=== PATIENT | female | born 1975 | race African-American/Black ===

== ENCOUNTER 2024-02-08 09:57 | Emergency (ER) | payer OTHER, SELFPAY ==
--- NOTE | ~2024-02-08 | XR_ITS ---
XR chest 2V Ordering provider: Cecil Eli MD History: 48 years Female with . chest pain SINCE YESTERDAY, HX ANXIETY, CURRENT SMOKER . Comparison: None. FINDINGS: MEDIASTINUM: The cardiac silhouette is not enlarged. LUNGS: No infiltrates, effusions or pneumothorax. OTHER: No free air under the diaphragm. IMPRESSION: No acute cardiopulmonary pathology. Reviewed, dictated and finalized at location A. R TRANSFORMER INSPECTOR
--- NOTE | 2024-02-08 10:07 | ECG_ITS ---
Test Date: 2024-02-08 10:14:11 Measurements Intervals Matthews Rate: 87 P: 70 OH: 152 QRS: 63 QRSD: 77 T: 60 QT: 331 QTc: 400 Interpretive Statements SINUS RHYTHM POSSIBLE LEFT ATRIAL ENLARGEMENT BASELINE ARTIFACT- I, II, III, AVR, AVL, AVF BORDERLINE ECG No previous ECG available for comparison Electronically Signed On 02-08-2024 15:54:49 C SOFTWARE DEVELOPER by Nino Keyes D.O.
[2024-02-08 10:09] VITALS: BP 120/92; PULSE 88; RESP 16; TEMP 36.2; O2SAT 97
[2024-02-08 10:42] LABS: Basophils Percent Auto 0.4 % (0.2-1.2); Eosinophils Absolute Auto 0.1 K/mm3 (0-0.3); Eosinophils Percent Auto 1.2 % (0-4.4); Hematocrit 40.8 % (37.0-47.0); Hemoglobin 13.8 g/dL (12.0-15.0); Immature Granulocyte Absolute 0.02 K/mm3 (0.00-0.031); Immature Granulocyte Percent A 0.3 % (0-0.5); Lymphocytes Absolute Auto 3.33 K/mm3 (0.9-3.2); Lymphocytes Percent Auto 46.1 % (18.3-44.2); Mean Corpuscular HGB Conc 33.8 g/dl (32-36); Mean Corpuscular Hemoglobin 32.3 pg (26-34); Mean Corpuscular Volume 95.6 fl (80-100); Mean Platelet Volume 10.2 fl (7.4-10.4); Monocytes Absolute Auto 0.4 K/mm3 (0.1-0.6); Monocytes Percent Auto 5.9 % (2.6-8.5); Neutrophils Absolute Auto 3.3 K/mm3 (1.3-6.7); Neutrophils Percent Auto 46.1 % (45.5-73.1); Platelet Count Result 270 k/mm3 (150-375); Red Blood Count 4.27 M/mm3 (4.2-5.4); Red Cell Distribution Width 13.7 % (11.5-14.5); White Blood Count 7.2 K/mm3 (4.5-10.0)
[2024-02-08 10:50] LABS: Alanine Aminotransferase 23 U/L (6-35); Albumin Level 4.5 g/dL (3.5-5.1); Alkaline Phosphatase 99 U/L (38-126); Anion Gap 6 mmol/L (4-12); Aspartate Amino Transferase 21 U/L (14-36); Bilirubin,Total 0.4 mg/dL (0.2-1.3); Blood Urea Nitrogen 11 mg/dL (7-17); Calcium 9.2 mg/dL (8.4-10.2); Carbon Dioxide 25 mmol/L (22-30); Chloride 108 mmol/L (98-107); Estimated CRCL calculation 95 ml/min; Estimated Glomerular Filt Rate > 60; Glucose 119 mg/dL (65-110); Lipase 158 U/L (23-300); Potassium 4.4 mmol/L (3.4-5.0); Sodium 139 mmol/L (137-145)
[2024-02-08 10:53] LABS: INR 0.9; Prothrombin Time 12.5 Seconds (11.1-14.7)
[2024-02-08 10:54] LABS: Partial Thromboplastin Time 26.7 Seconds (22.3-36.8)
[2024-02-08 11:56] VITALS: BP 124/85; PULSE 75; RESP 14; TEMP 36.4; O2SAT 97
[2024-02-08 11:57] VITALS: O2SAT 100
[2024-02-08] MEDS: ASPIRIN 81 MG CHEWABLE TABLET 324 MG PO (12:22)
--- NOTE | 2024-02-08 12:25 | ED_ITS ---
HPI - Chest Pain General Chief Complaint: Chest Pain Stated Complaint: chest pain x 3 weeks Time Seen by Provider: 02/08/24 12:10 Source: patient Mode of arrival: ambulatory Limitations: no limitations History of Present Illness HPI narrative: 48 years old female with history of anxiety and depression came to the ED from work by private car complaining of central chest pressure type pain started last night, got worse at work today. Patient denies radiation of pain, increased with anxiety, stress and movement, patient went back to work today for the 1st time after 3 weeks of work because of her daughter got murdered 3 weeks ago. Patient denies radiation of pain or shortness of breath. Related Data Allergies Allergy/AdvReac Type Severity Reaction Status Date / Time No Known Allergies Allergy Verified 02/08/24 12:04 Review of Systems Review of Systems: All systems reviewed & are unremarkable except as noted in HPI and below Exam Narrative: General appearance: Well-developed, well-nourished, patient is crying and looks severely depressed Skin: Normal color Head: Normocephalic, nontraumatic Eyes: Clear conjunctiva ENT: Oropharynx normal, ears normal, nose normal Neck: Supple, nontender Chest and respiratory: Airway patent, no respiratory distress, no accessory muscle use severe tenderness across the chest with mild palpation, no bruises, no swelling or rash Heart: Regular rate/rhythm Abdomen: Soft, nontender, no organomegaly, quiet bowel sounds Musculoskeletal: Normal range of motion, nontender back Neurologic: Alert and oriented ?3, 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 as tested, no gross motor deficit Course Vital Signs Vital signs: Vital Signs Temperature 36.2 C L 02/08/24 10:09 Pulse Rate 88 02/08/24 10:09 Respiratory Rate 16 02/08/24 10:09 Blood Pressure 120/92 H 02/08/24 10:09 Pulse Oximetry 97 02/08/24 10:09 Temperature 36.4 C 02/08/24 11:56 Pulse Rate 75 02/08/24 11:56 Respiratory Rate 14 02/08/24 11:56 Blood Pressure 124/85 02/08/24 11:56 Pulse Oximetry 100 02/08/24 11:57 Oxygen Delivery Room Air 02/08/24 11:57 MDM - Chest Pain MDM Narrative Medical decision making narrative: Patient came to the ED with central chest pressure type pain Vital signs stable Physical examination showing crying patient, looks depressed, with severe tenderness across the chest with light palpation Differential diagnosis includes chest wall pain, stress inducing chest pain, co ronary artery disease is less likely, pulmonary embolism is less likely. Blood workup today include CBC, CMP, troponin showed no significant abnormality Chest x-ray showed no acute abnormality EKG showed normal sinus rhythm at 87 beats per minute, left atrial enlargement, borderline EKG Heart score is 2. Discharged home, Diagnosis: Anxiety, chest wall pain Differential Diagnosis Differential diagnosis: Likely other (As above) Medical Records Data Attestation: I reviewed the patient's medical records. Lab Data Attestation: I reviewed the patient's lab results. 02/08/24 10:35 02/08/24 10:35 Labs: Lab Results 02/08/24 Range/Units 10:35 WBC 7.2 (4.5-10.0) K/mm3 RBC 4.27 (4.2-5.4) M/mm3 Hgb 13.8 (12.0-15.0) g/dL Hct 40.8 (37.0-47.0) % MCV 95.6 (80-100) fl MCH 32.3 (26-34) pg MCHC 33.8 (32-36) g/dl RDW 13.7 (11.5-14.5) % Plt Count 270 (150-375) k/mm3 MPV 10.2 (7.4-10.4) fl Immature Gran % (Auto) 0.3 (0-0.5) % Neut % (Auto) 46.1 (45.5-73.1) % Lymph % (Auto) 46.1 H (18.3-44.2) % [place] % (Auto) 5.9 (2.6-8.5) % Eos % (Auto) 1.2 (0-4.4) % Baso % (Auto) 0.4 (0.2-1.2) % Lymph # (Auto) 3.33 H (0.9-3.2) K/mm3 [place] # (Auto) 0.4 (0.1-0.6) K/mm3 Eos # (Auto) 0.1 (0-0.3) K/mm3 Baso # (Auto) 0.0 (0.0-0.1) K/mm3 Abs Immat Gran (auto) 0.02 (0.00-0.031) K/mm3 Absolute Neuts (auto) 3.3 (1.3-6.7) K/mm3 Absolute Nucleated RBC 0.000 (0.0-0.012) K/mm3 Nucleated RBC % 0.0 (0.0-0.2) % PT 12.5 (11.1-14.7) Seconds INR 0.9 APTT 26.7 (22.3-36.8) Seconds Sodium 139 (137-145) mmol/L Potassium 4.4 (3.4-5.0) mmol/L Chloride 108 H (98-107) mmol/L Carbon Dioxide 25 (22-30) mmol/L Anion Gap 6 (4-12) mmol/L BUN 11 (7-17) mg/dL Creatinine 0.60 L (0.7-1.0) mg/dL Estim Creat Clear Calc 95 ml/min Estimated GFR > 60 (59 - ) Glucose 119 H (65-110) mg/dL Calcium 9.2 (8.4-10.2) mg/dL Total Bilirubin 0.4 (0.2-1.3) mg/dL AST 21 (14-36) U/L ALT 23 (6-35) U/L Alkaline Phosphatase 99 (38-126) U/L Troponin I 0.020 (0.000-0.034) ng/mL Total Protein 7.0 (6.3-8.2) g/dL Albumin 4.5 (3.5-5.1) g/dL Lipase 158 (23-300) U/L Imaging Data Radiologist's impression: Impressions Chest X-Ray 02/08/24 11:44 IMPRESSION: No acute cardiopulmonary pathology. ECG Data EKG #1: Attestation: I personally reviewed and interpreted this ECG as follows: ECG completion date: 02/08/24 Interpretation: Normal sinus rhythm, left atrial enlargement, abnormal EKG Critical Care Time Critical Care Time Critical Care Time: No Discharge Plan Discharge Clinical Impression: Atypical chest pain Patient Disposition: Home, Self-Care Condition: Improved Instructions: Chest Pain (ED), Depression in Older Adults (ED) Additional Instructions: Return if symptoms are worsening , call your family physician for appointment, take Tylenol as as needed for aches and pain, continue home medications. Follow-up/Referrals: PHYSICIAN NOT ON STAFF,NONSTAFF [Primary Care Provider] - Stand Alone Forms: Work/School Release IP Quality HEART score for chest pain patients History: slightly suspicious ECG: normal Age: > 45 and < 65 years Risk factors: 1 or 2 risk factors Troponin: < or = to 1x normal limit Heart score: 2
[2024-02-08 12:51] VITALS: BP 140/84; PULSE 71; RESP 16; O2SAT 100
[2024-02-08] MEDS: KETOROLAC 30 MG/ML VIAL (*BKC) IV PUSH (13:46)
[2024-02-08] MEDS: LORazepam INJ (*CRX) 2 MG/ML VIAL 1 MG IV PUSH (13:47)
[2024-02-08 13:59] VITALS: BP 134/88; PULSE 70; RESP 13; TEMP 36.8; O2SAT 100
== END 2024-02-08 14:04 | disposition home or self-care (01) ==
PROVIDERS: Emergency Medicine; Emergency Provider Emergency Medicine
DX: R07.89 Other chest pain (principal); F41.9 Anxiety disorder, unspecified; F32.A Depression, unspecified; R94.31 Abnormal electrocardiogram [ECG] [EKG]
CPT/HCPCS: 36415; 71046; 80053; 83690; 84484; 85025; 85610; 85730; 93005; 96374; 96375; 99284; A9270; J1885; J2060

== ENCOUNTER 2024-06-21 14:15 | Emergency (ER) | payer OTHER, SELFPAY ==
--- NOTE | ~2024-06-21 | CT_ITS ---
CT lumbar spine wo con Ordering provider: Becky Lugo MD History: 48 years Female with . b/l leg weakness . Comparison: None. Technique: CT lumbar spine without contrast. Automated exposure control and iterative reconstruction technique were employed. The dose-length product was 634.27 mGy-cm. FINDINGS: VERTEBRAE: Normal height and alignment. No subluxation or visible acute fracture. DISC SPACES: Well maintained. Facet joint disease seen at the level of L3-L4, L4-L5 and L5 is 1 bilaterally. T12-L1: No stenosis. L1-L2: No stenosis. L2-L3: No stenosis. L3-L4: No stenosis. L4-L5: No stenosis. Diffuse disc bulge with narrowing of the right foramen with right nerve root com pression. Narrowing of the left foramen is also seen. L5-S1: No stenosis. Diffuse disc bulge with slight narrowing of the foramina. PARASPINOUS SOFT TISSUES: Mild atheromatous disease of the abdominal aorta. Sclerotic changes seen in both iliac bone suggestive of sacroiliitis. IMPRESSION: No acute osseous abnormality. Diffuse disc bulge with bilateral narrowing of the foramina at the level of L4-L5. Nerve root diane kieran seen in the right side. Clinical correlation advised. MRI is better for evaluation. Reviewed, dictated and finalized at location A. IMPRESSION: No acute osseous abnormality. Diffuse disc bulge with bilateral narrowing of the foramina at the level of L4- L5. Nerve root compression seen in the right side. Clinical correlation advised . MRI is better for evaluation.
[2024-06-21 14:19] VITALS: BP 143/87; PULSE 88; RESP 16; TEMP 36.6; O2SAT 100
--- NOTE | 2024-06-21 15:34 | PC.NURSE ---
1520---Patient notified staff that she was going out to smoke
[2024-06-21 15:45] VITALS: RESP 16; O2SAT 100
--- OUTSIDE RECORDS SUMMARY | 2024-06-21 16:26 | XMS_ITS | Clinical Summary ---
Author Organization [facility] [employer] Address [address] [place] [address] Care Team Providers Care Head Of Ethics And Compliance Name Role Phone Unavailable Primary Care Provider Unavailabl e Source Comments [facility],non-owned Affiliates and Associated Physician Practices is amultiple site organization consisting of ambulatory clinics and hospital sitesin [place], [place], [place] and [place]. This disclosure is being madepursuant to the Care Everywhere program and may not contain all information available regarding this patient. Last updated 17.[facility] Allergies Active Allergy Reactions Criticality Noted Date Comments Penicillins Rash Medium 06/21/2023 Medications * Be aware that medications may not be up to date on this document. Alwaysverify current medications with the patient. Medication Sig Dispensed Refills Start Date End Date Status clonazePAM (KlonoPIN) 0.5 MG tabletIndications:A nxiety Take 1 (one) tablet by mouth at bedtime Reasons: Feeling Anxious Active omeprazole EC (PriLOSEC OTC) 20 MG tabletIndications:H eartburn Take 1 (one) tablet by mouth as needed for Heartburn Reasons: Heartburn Active ergocalciferol (Drisdol) 1.25 MG (08404 UT) capsule Take 1 (one) capsule by mouth every 7 days 13 capsule 3 07/29/2023 Active Active Problems Problem Noted Date Diagnosed Date MARTIR (obstructive sleep apnea) 11/11/2023 Overview (11/11/2023): HOME SLEEP APNEA TEST INTERPRETATION (07/27/2023) DIAGNOSTIC STUDY During this diagnostic study, the patient was monitored for 384.5 minutes. The patient's overall respiratory event index (KEYSAH) was increased at 12.8 per hour. The supine KEYSHA was 22.4 per hour while the non-supine KEYSHA was 12.1 per hour. The minimum oxygen saturation was decreased at 84%. The time spent with oxygen saturation less than 90% was 4 min. 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 Lactose intolerance 06/21/2023 SOB (shortness of breath) on exertion 06/21/2023 Gastroesophageal reflux disease 06/21/2023 Orthopnea 06/21/2023 PND (paroxysmal nocturnal dyspnea) 06/21/2023 Wheezing 06/21/2023 Chronic cough 06/21/2023 Glaucoma of left eye 06/21/2023 Toothache 06/21/2023 Chronic pain of both knees 06/21/2023 Nocturnal leg cramps 06/21/2023 Numbness and tingling in right hand 06/21/2023 Migraine without status migrainosus, not intract able 06/21/2023 Sleep related headaches 06/21/2023 PTSD (post-traumatic stress disorder) 06/21/2023 Depression 06/21/2023 Bipolar affective disorder, current episode mixe d 06/21/2023 Generalized anxiety disorder with panic attacks 06/21/2023 Elevated BP without diagnosis of hypertension Family History Medical History Relation Name Comments Anxiety Disorder Brother Dementia Brother head injury Hypertension Brother Sleep Disorder - Sleep apnea Brother pap CAD (Coronary Artery Disease) Father 67 CVA Father 67 Hypertension Father 67 Thyroid Disease Father 67 Anxiety Disorder Mother 53 CVA Mother 53 Depression Mother 53 Diabetes; unknown type Mother 53 Hypertension Mother 53 Lupus Mother 53 Sleep Disorder - Sleep apnea Mother 53 no pap, RLS, insomnia Thyroid Disease Mother 53 Relation Name Status Comments Brother Alive Father 67 Mother 53 Social History Tobacco Use Types Packs/Day Years Used Date Smoking Tobacco: Every Day Cigarettes 1 25.3 Started: 1999 Smokeless Tobacco: Never Tobacco Cessation:Ready to Q uit: No; Counseling Given: No Alcohol Use Standard Drinks/Week Comments Yes 5 (1 standard drink = 0.6 oz pur e alcohol) weekends 5-6 Education Answer Date Recorded What is the highest level of school you have completed or the highest degree you have received? Associate degree: occupational, technical, or vocational program 06/21/2023 Sex and Gender Information Value Date Recorded Sex Assigned at Not on file Gender Identity Not on file Sexual Orientation Not on file Last Filed Vital Signs Vital Sign Reading Time Taken Comments Blood Pressure 134/85 06/21/2023 8:29 AM CDT Pulse 97 06/21/2023 8:29 AM CDT Temperature - - Respiratory Rate - - Oxygen Saturation - - Inhaled Oxygen Concentration - - Weight 85.7 kg (189 lb) 06/21/2023 8:29 AM CDT Height 157.5 cm (5' 2 ) 06/21/2023 8:29 AM CDT Body Mass Index 34.57 06/21/2023 8:29 AM CDT Plan of Treatment Health Maintenance Due Date Last Done Comments COLOGUARD (AGES 45-75) - COL ON CA SCREENING 1973 COLON MONITORING 1973 COLONOSCOPY - COLON CA SCREENING 1973 CT COLONOGRAPHY - COLON CA SCREENING 1973 Colorectal Cancer Screening 1973 FIT - COLON CA SCREENING 1973 FLEX SIG - COLON CA SCREENING 1973 LIPID TESTING 1973 MAMMOGRAM 1973 PAP SMEAR 1973 HIV SCREENING 1988 HEPATITIS C SCREENING 07/21/1991 DTAP/TDAP/TD VACCINES (1 - Tdap) 1992 HEPATITIS B VACCINE (1 of 3 - 19+ 3-dose series) 1992 PNEUMOCOCCAL VACCINE 50+ (1 of 2 - PCV) 1992 PNEUMOCOCCAL VACCINE (1 of 2 - PCV) 1992 LUNG CANCER SCREENING 07/26/2023 ZOSTER VACCINE (1 of 2) 07/26/2023 COVID-19 VACCINE (1 - 2023-2 5 season) 2023 INFLUENZA VACCINE (Season Ended) 2024 SCREENING FOR DIABETES 06/26/2026 06/27/2023 HIB VACCINE Aged Out No longer eligi ble based on patient's age to complete this topic HPV VACCINE Aged Out No longer eligi ble based on patient's age to complete this topic MENINGOCOCCAL (Group B) VACC INE SHARED DECISION-MAKING Aged Out No longer eligibl e based on patient's age to complete this topic MENINGOCOCCAL GROUPS A/C/Y/W VACCINE Aged Out No longer eligible b ased on patient's age to complete this topic Procedures Procedure Name Priority Date/Time Associated Diagnosis Comments COMPREHENSIVE METABOLIC PANEL Routine 06/27/2023 9:36 AM CDT Loud snoring Excessive daytime sleepiness Chronic fatigue Obesity (BMI 30-39.9) SOB (shortness of breath) on exertion Elevated BP without diagnosis of hypertension from Last 3 Months or Most Recently Relevant to Health Maintenance Results * (ABNORMAL) COMPREHENSIVE METABOLIC PANEL (06/27/2023 9:36 AM CDT) Glucose 121(H) 65 - 99 mg/dL [facility] Comment: Fasting reference interval For someone without known diabetes, a glucose value between 100 and 125 mg/dL is consistent with prediabetes and should be confirmed with a follow-up test. BUN 11 7 - 25 mg/dL [facility] Creatinine 0.77 0.50 - 0.99 mg/dL [facility] eGFR by Cystatin C 95 > OR = 60 mL/min/1. 73m2 [facility] BUN/Creatinine Ratio SEE NOTE: 6 - 22 (calc) [facility] Comment: Not Reported: BUN and Creatinine are within reference range. Sodium 138 135 - 146 mmol/L [facility] Potassium 4.4 3.5 - 5.3 mmol/L [facility] Chloride 104 98 - 110 mmol/L [facility] CO2 24 20 - 32 mmol/L [facility] Calcium 9.5 8.6 - 10.2 mg/dL [facility] Protein Total 7.1 6.1 - 8.1 g/dL [facility] Albumin 4.4 3.6 - 5.1 g/dL [facility] Globulin Total 2.7 1.9 - 3.7 g/dL (calc) [facility] Albumin/Globulin Ratio 1.6 1.0 - 2.5 (calc) [facility] Bilirubin Total 0.5 0.2 - 1.2 mg/dL [facility] Alkaline Phosphatase 91 31 - 125 U/L [facility] AST 13 10 - 35 U/L [facility] ALT 20 6 - 29 U/L [facility] Comment: Test Performed at: [facility] [address] [place] [address] KIRAN BHAKTA MD Blood BLOOD SPECIMEN / Unknown 06/27/2023 9:36 AM CDT 06/27/2023 9:36 AM CDT Alla Armstrong [facility] EMISTRY ORDERABLES Performing Organization Address City/State/[facility] Co de Phone Number [employer] [address] [place] [address] from Last 3 Months or Most Recently Relevant to Health Maintenance Insurance Payer Benefit Plan / Group Subscriber ID Effective Dates Phone Address Type [facility] CHOICE/SELECT/ CHOICE PLUS/ALL PAYORS [id number] [address] [address] [place] [address] HMO
[2024-06-21] MEDS: HYDROcodone/acetaminophen (*CRX) 5-325 MG TABLET 1 TAB PO (16:30)
[2024-06-21 16:32] LABS: Basophils Percent Auto 0.3 % (0.2-1.2); Eosinophils Absolute Auto 0.2 K/mm3 (0-0.3); Eosinophils Percent Auto 2.1 % (0-4.4); Hematocrit 40.7 % (37.0-47.0); Hemoglobin 13.2 g/dL (12.0-15.0); Immature Granulocyte Absolute 0.02 K/mm3 (0.00-0.031); Immature Granulocyte Percent A 0.3 % (0-0.5); Lymphocytes Absolute Auto 3.48 K/mm3 (0.9-3.2); Lymphocytes Percent Auto 48.9 % (18.3-44.2); Mean Corpuscular HGB Conc 32.4 g/dl (32-36); Mean Corpuscular Hemoglobin 31.5 pg (26-34); Mean Corpuscular Volume 97.1 fl (80-100); Mean Platelet Volume 10.1 fl (7.4-10.4); Monocytes Absolute Auto 0.4 K/mm3 (0.1-0.6); Neutrophils Percent Auto 42.4 % (45.5-73.1); Platelet Count Result 335 k/mm3 (150-375); Red Blood Count 4.19 M/mm3 (4.2-5.4); Red Cell Distribution Width 13.7 % (11.5-14.5); White Blood Count 7.1 K/mm3 (4.5-10.0)
[2024-06-21 16:34] LABS: Add Urine Microscopic? NO; Appearance Urine Clear (Clear); Bilirubin Urine Negative (Negative); Blood Urine Negative (Negative); Color Urine Yellow (Yellow); Glucose Urine UA Negative (Negative); Ketones Urine Negative (Negative); Leukocyte Esterase Ur Negative LEU/UL (Negative); Nitrate Urine Negative (Negative); Protein Urine Negative (Negative); Specific Grav Ur 1.011 (1.001-1.035); Urobilinogen Urine 0.2 mg/dL (<2.0); pH Urine 6.5 (5.0-9.0)
[2024-06-21 16:44] LABS: Alanine Aminotransferase 23 U/L (6-35); Albumin Level 4.4 g/dL (3.5-5.1); Alkaline Phosphatase 95 U/L (38-126); Anion Gap 7 mmol/L (4-12); Aspartate Amino Transferase 21 U/L (14-36); Bilirubin,Total 0.5 mg/dL (0.2-1.3); Blood Urea Nitrogen 9 mg/dL (7-17); Calcium 9.2 mg/dL (8.4-10.2); Carbon Dioxide 29 mmol/L (22-30); Chloride 102 mmol/L (98-107); Creatine Kinase 231 U/L (30-135); Estimated CRCL calculation 71 ml/min; Estimated Glomerular Filt Rate > 60; Glucose 97 mg/dL (65-110); Magnesium 2.1 mg/dL (1.6-2.3); Potassium 4.2 mmol/L (3.4-5.0); Sodium 138 mmol/L (137-145)
--- NOTE | 2024-06-21 16:51 | ED.GENADULT ---
HPI - General Adult General Chief complaint: Unspecified Stated complaint: leg cramps, sudden urine incontinence Time Seen by Provider: 06/21/24 15:46 Source: patient Mode of arrival: ambulatory History of Present Illness HPI narrative: Patient presents with report of bilateral leg pain and cramps. Pain started at her distal feet/ankles and has risen to her thighs. Had a cold 2-3 weeks ago, no GI symptoms at the time but she does feel her acid reflux is worse. Denies paresthesias. No numbness or tingling in vagina/groin but she has been suddenly incontinent of urine. Has control of bowels. Had to wear depends and was sent home from work because she wet herself. Denies reent injury. Denies back pain. No hematuria but having urianry urgency. No dysuria. Her daughter was recently murdered. No vaginal bleeding or discharge. LMP 2 years ago. Having some shortness of breath. Related Data Allergies Allergy/AdvReac Type Severity Reaction Status Date / Time No Known Allergies Allergy Verified 06/21/24 14:16 [facility] Surgical History Surgical History H/O skin graft left leg (pediatric) Family History Family History Daughter Murder Exam Narrative: GENERAL: well-nourished, in moderate acute distress. HEAD: Normocephalic, atraumatic. EYES: Non injected, non icteric ENT: Nares clear, no rhinorrhea or epistaxis. NECK: Supple. CHEST: Speaking in full sentences. No respiratory distress. HEART: Regular rate and rhythm. . ABDOMEN: Soft, nondistended. EXTREMITIES: Normal range of motion. No lower extremity edema. SKIN: Warm, dry, no rash in bilateral lower extremities from knees and below. NEURO: Alert and oriented x3. Initially 4/5 strength with bilateral ankle dorsiflexion/plantarflexion, b/l knee flexion/extension, and hip flexion. Sensation intact throughout bilateral lower extremities. Initially 2+ patellar reflex on R and 1+ patellar reflex L. PSYCH: Tearful. Course Vital Signs Vital signs: Vital Signs Temperature 97.8 F 06/21/24 14:19 Pulse Rate 88 06/21/24 14:19 Respiratory Rate 16 06/21/24 14:19 Blood Pressure 143/87 H 06/21/24 14:19 Pulse Oximetry 100 06/21/24 14:19 Oxygen Delivery Room Air 06/21/24 14:19 Temperature 97.7 F 06/21/24 23:30 Pulse Rate 78 06/21/24 23:30 Respiratory Rate 16 06/21/24 23:30 Blood Pressure 130/70 06/21/24 23:30 Pulse Oximetry 100 06/21/24 23:30 Oxygen Delivery Room Air 06/21/24 14:19 Medical Decision Making MDM Narrative Medical decision making narrative: Patient presents with bilateral lower extremity pain and cramping. She initially states that it started in her distal legs and has ascended. Also reports urinary incontinence but no bowel incontinence or paresthesias or saddle anesthesia. No back pain. The emergency department she is afebrile with vital signs notable for mild hypertension. Mild CPK elevation but not to a degree to suggest rhabdomyolysis. D-dimer normal. Patient given Dilaudid and, later, additional opiate. PVR 30. Discussed with neurologist Dr hough who recommends CT imaging and assessing rectal tone. Patient is reassessed approximately 1929. At this time I performed physical exam again. She now has 1+ patellar reflex on the left and 2+ on the R. Walks with atalgic gait but states the pain is only around her proximal thighs at this point. The pain in her lower extremities has resolved but it is the pain around her proximal thighs / groin that is problematic. Normal rectal tone. She now is able to demonstrate better strength in lower extremities. She is also able to go to the bathroom which demonstrates that she has the sensation to go and is able to void without incontinence. Given this, I know have much lower suspicion for Guillain-[place] or cauda equina. Patient given Valium for muscle relaxation. CT imaging shows disc bulge with foraminal narrowing. Given patient's pain is much better controlled, reasonable to discharge with follow up. Patient given steroid and prescribed steph same. ALso prescribed an aggressive multimodal pain regimen to target pain, inflammation, and muscle relaxation (during the day and night). Given contact referral for PCP and NSGY. Given strict ED return precautions. Differential Diagnosis Differential Diagnosis: Guillain-[place], peripheral neuropathy, cauda equina; lumbar radiculopathy/sciatica; rhabdomyolysis ; symptomatic anemia; electrolyte abnormtliies; DVTs; UTI; meralgia paresthetica; conversion disorder Vital Signs Vital Signs: Vital Signs Temperature 97.8 F 06/21/24 14:19 Pulse Rate 88 06/21/24 14:19 Respiratory Rate 16 06/21/24 14:19 Blood Pressure 143/87 H 06/21/24 14:19 Pulse Oximetry 100 06/21/24 14:19 Oxygen Delivery Room Air 06/21/24 14:19 Temperature 97.7 F 06/21/24 23:30 Pulse Rate 78 06/21/24 23:30 Respiratory Rate 16 06/21/24 23:30 Blood Pressure 130/70 06/21/24 23:30 Pulse Oximetry 100 06/21/24 23:30 Oxygen Delivery Room Air 06/21/24 14:19 Lab Data Lab results reviewed: Yes I reviewed the patient's lab results. Lab results narrative: Normal chemistry. No anemia, thrombocytopenia, leukocytosis. 06/21/24 16:23 06/21/24 16:23 Labs: Lab Results 06/21/24 06/21/24 Range/Units 16:23 16:24 WBC 7.1 (4.5-10.0) K/mm3 RBC 4.19 L (4.2-5.4) M/mm3 Hgb 13.2 (12.0-15.0) g/dL Hct 40.7 (37.0-47.0) % MCV 97.1 (80-100) fl MCH 31.5 (26-34) pg MCHC 32.4 (32-36) g/dl RDW 13.7 (11.5-14.5) % Plt Count 335 (150-375) k/mm3 MPV 10.1 (7.4-10.4) fl Immature Gran % (Auto) 0.3 (0-0.5) % Neut % (Auto) 42.4 L (45.5-73.1) % Lymph % (Auto) 48.9 H (18.3-44.2) % Hartley % (Auto) 6.0 (2.6-8.5) % Eos % (Auto) 2.1 (0-4.4) % Baso % (Auto) 0.3 (0.2-1.2) % Lymph # (Auto) 3.48 H (0.9-3.2) K/mm3 Hartley # (Auto) 0.4 (0.1-0.6) K/mm3 Eos # (Auto) 0.2 (0-0.3) K/mm3 Baso # (Auto) 0.0 (0.0-0.1) K/mm3 Abs Immat Gran (auto) 0.02 (0.00-0.031) K/mm3 Absolute Neuts (auto) 3.0 (1.3-6.7) K/mm3 Absolute Nucleated RBC 0.000 (0.0-0.012) K/mm3 Nucleated RBC % 0.0 (0.0-0.2) % D-Dimer 0.36 (<0.48) ug/mL Sodium 138 (137-145) mmol/L Potassium 4.2 (3.4-5.0) mmol/L Chloride 102 (98-107) mmol/L Carbon Dioxide 29 (22-30) mmol/L Anion Gap 7 (4-12) mmol/L BUN 9 (7-17) mg/dL Creatinine 0.83 (0.7-1.0) mg/dL Estim Creat Clear Calc 71 ml/min Estimated GFR > 60 (59 - ) Glucose 97 (65-110) mg/dL Calcium 9.2 (8.4-10.2) mg/dL Magnesium 2.1 (1.6-2.3) mg/dL Total Bilirubin 0.5 (0.2-1.3) mg/dL AST 21 (14-36) U/L ALT 23 (6-35) U/L Alkaline Phosphatase 95 (38-126) U/L Total Creatine Kinase 231 H (30-135) U/L Total Protein 8.0 (6.3-8.2) g/dL Albumin 4.4 (3.5-5.1) g/dL Urine Color Yellow (Yellow) Urine Appearance Clear (Clear) Urine pH 6.5 (5.0-9.0) Ur Specific Irving 1.011 (1.001-1.035) Urine Protein Negative (Negative) mg/dL Urine Glucose (UA) Negative (Negative) mg/dL Urine Ketones Negative (Negative) mg/dL Ur Blood (Man) Negative (Negative) Urine Nitrate Negative (Negative) Urine Bilirubin Negative (Negative) Urine Urobilinogen 0.2 (<2.0) mg/dL Leukocyte Esterase Rfl Negative (Negative) BAM/UL Imaging Data Radiologist's impression: Impressions Lumbar Spine CT 06/21/24 19:47 IMPRESSION: No acute osseous abnormality. Diffuse disc bulge with bilateral narrowing of the foramina at the level of L4-L5. Nerve root compression seen in the right side. Clinical correlation advised. MRI is better for evaluation. Discharge Plan Discharge Clinical Impression: L4-L5 disc bulge, Lumbar nerve root compression Patient Disposition: Home Condition: Stable Instructions: Antibiotic Form, Lumbar Disc Herniation (ED), Lower Back Exercises (ED) Additional Instructions: As we discussed, you have evidence of bulging disc in your low back. An aggressive multimodal pain regimen is recommended to help you rest but making your pain more manageable so you can balance this with staying active and moving and performing stretching exercises. Acetaminophen/Tylenol (maximum 4000 mg per day) is safe to take with NSAIDs (ibuprofen/Motrin) for pain relief. There is a muscle relaxer that you can use in the morning and a stronger muscle relaxer you can use at night. There also topical patches. In addition, steroids are not indicated for all back pain but can help with the inflammation with this. YOu received a dose in the ED and the rest prescribed. Try to take these before 9am moving forward in the future. It is important that you follow-up with primary care physician as you will likely need physical therapy, potentially alternative pain management strategies, and likely an MRI in the outpatient setting. You can also follow-up with the neurosurgeon listed below. Return to the ER if you have pain in your back, you develop worsening lower extremity weakness/numbness/paralysis, the numbness or tingling in your private parts continues, or you are unable to control your ability to urinate/stool again. Patient Language: Northern Irish Prescriptions: New acetaminophen 500 mg capsule 1,000 mg PO Q6H PRN (Reason: pain) Qty: 30 0RF lidocaine 4 % adhesive patch,medicated 1 patch topical DAILY PRN (Reason: pain) Qty: 15 0RF ibuprofen 600 mg tablet 600 mg PO TID PRN (Reason: pain) Qty: 30 0RF methocarbamol 750 mg tablet 750 mg PO DAILY@0800 Qty: 14 0RF diazepam [Valium] 2 mg tablet 2 mg PO HS PRN (Reason: muscle spasm) Qty: 10 0RF prednisone 20 mg tablet 40 mg PO DAILY 5 Days Qty: 10 0RF Rx Instructions: start 06/22; received first dose in ED 06/21 Follow-up/Referrals: Pal Oconnor MD [Physician] - (neurosurgery) Percy Dougherty MD [Physician] - (Family practice/primary care physician) UNKNOWN,DOCTOR [Primary Care Provider] - Stand Alone Forms: Work/School Release IP Time of Disposition: 22:27
[2024-06-21 17:52] LABS: D Dimer 0.36 ug/mL (<0.48)
[2024-06-21] MEDS: HYDROmorphone HCL INJ (*CRX) 1 MG/ML SYR IV PUSH (18:22)
[2024-06-21 19:27] VITALS: BP 122/64; PULSE 77; RESP 18; O2SAT 98
[2024-06-21] MEDS: diazePAM INJ (*CRX) 10 MG/2 ML SYRINGE 2.5 MG IV PUSH (20:23)
[2024-06-21] MEDS: predniSONE 20 MG TABLET 40 MG PO (22:54)
[2024-06-21 23:30] VITALS: BP 130/70; PULSE 78; RESP 16; TEMP 36.5; O2SAT 100
== END 2024-06-21 23:30 | disposition home or self-care (01) ==
PROVIDERS: Emergency Provider Student in an Organized Health Care Education/Training Program
DX: M51.361 Other intervertebral disc degeneration, lumbar region with lower extremity pain only (principal)
CPT/HCPCS: 36415; 72131; 80053; 81003; 82550; 83735; 85025; 85380; 96374; 96375; 99284; A9270; J1171; J3360; J7512

== ENCOUNTER 2024-06-29 09:20 | Emergency (ER) | payer OTHER, SELFPAY ==
--- NOTE | ~2024-06-29 | MR_ITS ---
MRI of the lumbar spine Clinical History: Low back pain, incontinence Technique: Axial T2-weighted images, and sagittal T1-weighted, T2-weighted, and T2 fat-sat images wer e acquired. Findings: There is no fracture in the lumbar spine. 5 mm anterolisthesis of L4 over L5 noted. No susp icious bone marrow signal abnormality seen. At L1-L2, L2-L3, L3-L4, intervertebral discs maintain normal signal and position. No disc bulge or he rniation T levels. There is advanced facet arthropathies levels. No spinal canal stenosis or neural f oraminal narrowing at these levels. At L4-L5, there is diffuse disc uncovering and disc bulge with small superimposed right paracentral p rotrusion. There is severe facet arthropathy. No central canal stenosis. There is moderate to advance d right neural foraminal narrowing, and moderate left neural foraminal narrowing. At L5-S1, there is mild disc bulge with advanced facet arthropathy. No central canal stenosis. There is mild to moderate right neural foraminal narrowing. Left neural foramen preserved. Impression: Moderate degenerative spondylitic changes at L4-L5 and L5-S1, as detailed above. Extensive facet arthropathy throughout the lumbar spine. 5 mm anterolisthesis of L4 over L5. Reviewed, dictated and finalized at location . Impression: Moderate degenerative spondylitic changes at L4-L5 and L5-S1, as detailed above . Extensive facet arthropathy throughout the lumbar spine. 5 mm anterolisthesis of L4 over L5.
--- NOTE | ~2024-06-29 | XR_ITS ---
XR lumbar spine min 4V 06/29/2024 12:52 Indication: Low back pain. Follow-up MRI. Procedure: 4 views lumbar spine including flexion/extension. Comparison: MRI dated 06/29/2024 Findings: There is facet hypertrophy at L3-4, L4-5 and L5-S1. There is disc narrowing at L4-5 and L5- S1. There is grade 1 degenerative spondylolisthesis at L4-5. No significant alteration of alignment w ith flexion/extension. There is levoscoliosis. Impression: 1: Moderate-severe lumbar spondylosis with grade 1 degenerative spondylolisthesis at L4-5 with levosc oliosis. Reviewed, dictated and finalized at location B. Impression: 1: Moderate-severe lumbar spondylosis with grade 1 degenerative spondylolisthes is at L4-5 with levoscoliosis.
--- OUTSIDE RECORDS SUMMARY | 2024-06-29 09:27 | XMS_ITS | Clinical Summary ---
Author Organization [facility] Address [address] [place] [address] Care Team Providers Care Director Of [employer] Name Role Phone Unavailable Primary Care Provider Unavailabl e Source Comments [facility],non-owned Affiliates and Associated Physician Practices is amultiple site organization consisting of ambulatory clinics and hospital sitesin [place], [place], [place] and [place]. This disclosure is being madepursuant to the Care Everywhere program and may not contain all information available regarding this patient. Last updated 17.[facility] [address] Allergies Active Allergy Reactions Criticality Noted Date Comments Penicillins Rash Medium 06/21/2023 Medications * Be aware that medications may not be up to date on this document. Alwaysverify current medications with the patient. clonazePAM (KlonoPIN) 0.5 MG tabletIndicatio ns:Anxiety Take 1 (one) tablet by mouth at bedtime Reasons: Feeling Anxious Active omeprazole EC (PriLOSEC OTC) 20 MG tabletIndicatio ns:Heartburn Take 1 (one) tablet by mouth as needed for Heartburn Reasons: Heartburn Active ergocalciferol (Drisdol) 1.25 MG (56938 UT) capsule Take 1 (one) capsule by mouth every 7 days 13 capsule 3 4 Active Active Problems Problem Noted Date Diagnosed Date MARTIR (obstructive sleep apnea) 11/11/2023 Overview (11/11/2023): HOME SLEEP APNEA TEST INTERPRETATION (07/27/2023) DIAGNOSTIC STUDY During this diagnostic study, the patient was monitored for 384.5 minutes. The patient's overall respiratory event index (KEYSHA) was increased at 12.8 per hour. The [...] degree: occupational, technical, or vocational program 06/21/2023 Comments Unknown Sex and Gender Information Value Date Recorded Sex Assigned at Not on file Legal Sex Female 2:33 PM CDT Gender Identity Not on file Sexual Orientation Not on file Occupation Industry Job Start Date Job End Date [employer] Not on file Not on file Not on file Last Filed Vital Signs [...] 50+ (1 of 2 - PCV) 1992 LUNG CANCER SCREENING 07/26/2023 ZOSTER VACCINE (1 of 2) 07/26/2023 COVID-19 VACCINE (1 - 2024-2 5 season) 2023 INFLUENZA VACCINE (Season Ended) [...] 29 U/L [facility] Comment: Test Performed at: [id number] [id number] [place] [address] KIRAN BHAKTA MD Blood BLOOD SPECIMEN / Unknown 06/27/2023 9:36 AM CDT 06/27/2023 9:36 AM CDT us Alla A Nathaniel APNP-PI/SENIOR RESEARCH ASSOCIATE LAB - CHEMISTRY ORDERABLES Final Result [address] [address] from Last 3 Months or Most Recently Relevant to Health Maintenance Insurance [facility]
--- NOTE | 2024-06-29 09:39 | ED_ITS ---
HPI - Back Pain/Injury General Chief Complaint: Back Pain/Injury Stated Complaint: back pain Time Seen by Provider: 06/29/24 09:29 Source: patient Mode of arrival: ambulatory Limitations: no limitations History of Present Illness HPI Narrative: This is a 48-year-old female who presents to the ED for chief complaint of low back pain over the past several days. Patient states she was here recently and was referred over to Neurosurgery. States that she saw neurosurgery clinic this morning and was told she needs an MRI. She is concerned because they did not give her any prescription for pain medication. She states the pain is acutely worsening. States that she has had increasing episodes of urinary incontinence and 1 episode of bowel incontinence. Endorses paresthesias to the bilateral lower extremities, worse on the left. States the pain is limiting her ability to ambulate. Denies fevers, chills, nausea, vomiting my IV drug user prolonged steroid use. Related Data Home Medications ?Medication ?Instructions ?Recorded ?Confirmed ?Last Taken ?Type mirtazapine 7.5 mg tablet 7.5 mg PO DAILY 06/29/24 06/29/24 Unknown History propranolol 20 mg tablet 20 mg PO Q12H 06/29/24 06/29/24 Unknown History sertraline 100 mg tablet 100 mg PO DAILY 06/29/24 06/29/24 Unknown History Allergies Allergy/AdvReac Type Severity Reaction Status Date / Time No Known Allergies Allergy Verified 06/29/24 09:53 Review of Systems 2 Review of Systems: All systems as dictated in HPI [facility] Past Medical History Medical History (Updated 06/29/24 @ 12:42 by Bernard Cuevas PA-C) Migraines Anxiety Surgical History Surgical History H/O skin graft left leg (pediatric) Family History Family History (Updated 06/29/24 @ 08:27 by Natalie French MA) Daughter Murder Mother Cerebrovascular accident Hypertension Depression Father Depression Hypertension Social History Social History (Updated 06/29/24 @ 08:44 by Natalie French MA) Smoking packs per day: 1 Smoking cigarettes per day: 20.0 Smoking status: Current some day smoker Tobacco type: cigarettes Alcohol intake: former Substance use type: marijuana Do You Feel Safe in your Home?: Yes Lack of Transportation: YES Lack of Food: Sometimes True Current Housing: I Have Housing Concerned About Future Housing: No Difficulty Paying Gas/Electric Bills: YES Difficulty Paying for Meds: YES Currently Unemployed: No Education: High School Diploma/GED Difficulty w/ Childcare or Family Care: No Exam 2 Narrative: GENERAL: Tearful. Appears in pain. HEAD: Normocephalic, atraumatic. EYES: PERRLA and EOMI. ENT: Nares clear, no rhinorrhea or epistaxis. Mucous membranes moist. Oropharynx without tonsillar hypertrophy exudate or other lesions. NECK: Supple. No adenopathy or masses. CHEST: No respiratory distress. Clear to auscultation. No wheezes rales or rhonchi HEART: Regular rate and rhythm. No murmur heard. Normal peripheral pulses. ABDOMEN: Soft, nontender, nondistended, normal active bowel sounds. MSK: Normal range of motion. No edema. SKIN: Warm, dry, no rash. NEURO: Alert and oriented x4. No focal deficits. 5/5 strength to the lower extremities distally with EHL, plantar flexion and dorsiflexion. Straight leg raise equivocal and produces pain throughout back bilaterally. PSYCH: Normal mood and affect. : Bedside rectal exam done with female nurse brush or broom cutter present. Good rectal tone appreciated. Bedside bladder scan shows 21 mL Course Vital Signs Vital signs: Vital Signs Temperature 98.4 F 06/29/24 09:43 Pulse Rate 90 06/29/24 09:43 Respiratory Rate 20 06/29/24 09:43 Blood Pressure 139/93 H 06/29/24 09:43 Pulse Oximetry 94 06/29/24 09:43 Oxygen Delivery Room Air 06/29/24 09:43 Temperature 98.4 F 06/29/24 09:43 Pulse Rate 73 06/29/24 13:37 Respiratory Rate 18 06/29/24 13:37 Blood Pressure 125/79 06/29/24 13:37 Pulse Oximetry 98 06/29/24 13:37 Oxygen Delivery Room Air 06/29/24 09:43 MDM - Back Pain/Injury MDM Narrative Medical decision making narrative: This is a 48-year-old female who presents to the ED for chief complaint of low back pain and additional complaints of increasing urinary incontinence with episode of bowel incontinence. Vitals are normal. Exam remarkable for the above. Did check a postvoid residual which was normal at 21 as well as rectal tone with the above complaints for concern of caudal equina. Rectal tone is good on exam. Discussed with her neurosurgeon, Dr. Oconnor as well as radiologist Dr. Jones and we are in agreement to order MRI lumbar spine today for the reported symptoms of incontinence. MR lumbar: Impression: Moderate degenerative spondylitic changes at L4-L5 and L5-S1, as detailed above. Extensive facet arthropathy throughout the lumbar spine. 5 mm anterolisthesis of L4 over L5. Pain is controlled with IV morphine here. She was also given Toradol. Low concern for cauda equina at this point. Presentation consistent with degenerative disc disease with foraminal stenosis. Was able to update her neurosurgeon on these results who will see the patient in clinic. He is recommending getting additional x-rays of the lumbar spine as well. Patient will be discharged in stable condition. Supportive measures discussed and return precautions given. Patient is understanding and agreeable with plan for discharge with neurosurgery follow-up. Lab Data 06/29/24 10:02 06/29/24 10:02 Labs: Lab Results 06/29/24 Range/Units 10:02 WBC 10.5 H (4.5-10.0) K/mm3 RBC 4.50 (4.2-5.4) M/mm3 Hgb 14.0 (12.0-15.0) g/dL Hct 43.0 (37.0-47.0) % MCV 95.6 (80-100) fl MCH 31.1 (26-34) pg MCHC 32.6 (32-36) g/dl RDW 14.0 (11.5-14.5) % Plt Count 308 (150-375) k/mm3 MPV 9.7 (7.4-10.4) fl Immature Gran % (Auto) 0.9 H (0-0.5) % Neut % (Auto) 34.1 L (45.5-73.1) % Lymph % (Auto) 58.8 H (18.3-44.2) % [place] % (Auto) 4.1 (2.6-8.5) % Eos % (Auto) 1.6 (0-4.4) % Baso % (Auto) 0.5 (0.2-1.2) % Lymph # (Auto) 6.19 H (0.9-3.2) K/mm3 [place] # (Auto) 0.4 (0.1-0.6) K/mm3 Eos # (Auto) 0.2 (0-0.3) K/mm3 Baso # (Auto) 0.1 (0.0-0.1) K/mm3 Abs Immat Gran (auto) 0.10 H (0.00-0.031) K/mm3 Absolute Neuts (auto) 3.6 (1.3-6.7) K/mm3 Absolute Nucleated RBC 0.000 (0.0-0.012) K/mm3 Nucleated RBC % 0.0 (0.0-0.2) % Sodium 136 L (137-145) mmol/L Potassium 4.3 (3.4-5.0) mmol/L Chloride 104 (98-107) mmol/L Carbon Dioxide 22 (22-30) mmol/L Anion Gap 10 (4-12) mmol/L BUN 12 (7-17) mg/dL Creatinine 0.61 L (0.7-1.0) mg/dL Estim Creat Clear Calc 93 ml/min Estimated GFR > 60 (59 - ) Glucose 110 (65-110) mg/dL Calcium 9.0 (8.4-10.2) mg/dL Total Bilirubin 0.5 (0.2-1.3) mg/dL AST 19 (14-36) U/L ALT 23 (6-35) U/L Alkaline Phosphatase 94 (38-126) U/L Total Protein 8.0 (6.3-8.2) g/dL Albumin 4.4 (3.5-5.1) g/dL Discharge Plan Discharge Clinical Impression: Lumbar radiculopathy Patient Disposition: Home Condition: Stable Instructions: Antibiotic Form, Lumbar Radiculopathy (ED) Additional Instructions: Your exam today is reassuring overall. No need for emergent surgery. Please take muscle relaxers, use a lidocaine patch and use Tylenol 500 mg and ibuprofen 600 mg every 6 hours as needed for pain control. Follow-up very closely with your neurosurgeon and pain management regarding definitive pain control. If you have any new or worsening symptoms please return to the ER for further evaluation. Patient Language: Georgian Prescriptions: New cyclobenzaprine 10 mg tablet 10 mg PO HS PRN (Reason: muscle spasm) Qty: 10 0RF methylprednisolone [Medrol (David)] 4 mg tablets,dose pack See Rx Instructions .ROUTE .COMPLEX Qty: 21 0RF Rx Instructions: for 6 days oxybutynin chloride 5 mg tablet 5 mg PO ONCE Qty: 30 0RF No Action propranolol 20 mg tablet 20 mg PO Q12H mirtazapine 7.5 mg tablet 7.5 mg PO DAILY sertraline 100 mg tablet 100 mg PO DAILY acetaminophen 500 mg capsule 1,000 mg PO Q6H PRN (Reason: pain) Qty: 30 0RF lidocaine 4 % adhesive patch,medicated 1 patch topical DAILY PRN (Reason: pain) Qty: 15 0RF ibuprofen 600 mg tablet 600 mg PO TID PRN (Reason: pain) Qty: 30 0RF Follow-up/Referrals: UNKNOWN,DOCTOR [Primary Care Provider] - Time of Disposition: 12:42
[2024-06-29 09:43] VITALS: BP 139/93; PULSE 90; RESP 20; TEMP 36.9; O2SAT 94
[2024-06-29] MEDS: KETOROLAC 15 MG/ML VIAL (*BKC) IV PUSH (09:57)
[2024-06-29] MEDS: MORPHINE SULFATE (*CRX) 4 MG/ML INJ IV PUSH (09:59)
[2024-06-29 10:08] LABS: Basophils Absolute Auto 0.1 K/mm3 (0.0-0.1); Basophils Percent Auto 0.5 % (0.2-1.2); Eosinophils Absolute Auto 0.2 K/mm3 (0-0.3); Eosinophils Percent Auto 1.6 % (0-4.4); Immature Granulocyte Percent A 0.9 % (0-0.5); Lymphocytes Absolute Auto 6.19 K/mm3 (0.9-3.2); Lymphocytes Percent Auto 58.8 % (18.3-44.2); Mean Corpuscular HGB Conc 32.6 g/dl (32-36); Mean Corpuscular Hemoglobin 31.1 pg (26-34); Mean Corpuscular Volume 95.6 fl (80-100); Mean Platelet Volume 9.7 fl (7.4-10.4); Monocytes Absolute Auto 0.4 K/mm3 (0.1-0.6); Monocytes Percent Auto 4.1 % (2.6-8.5); Neutrophils Absolute Auto 3.6 K/mm3 (1.3-6.7); Neutrophils Percent Auto 34.1 % (45.5-73.1); Platelet Count Result 308 k/mm3 (150-375); White Blood Count 10.5 K/mm3 (4.5-10.0)
[2024-06-29 10:16] VITALS: BP 134/96; PULSE 89; RESP 20; O2SAT 100
[2024-06-29 10:18] LABS: Alanine Aminotransferase 23 U/L (6-35); Albumin Level 4.4 g/dL (3.5-5.1); Alkaline Phosphatase 94 U/L (38-126); Anion Gap 10 mmol/L (4-12); Aspartate Amino Transferase 19 U/L (14-36); Bilirubin,Total 0.5 mg/dL (0.2-1.3); Blood Urea Nitrogen 12 mg/dL (7-17); Carbon Dioxide 22 mmol/L (22-30); Chloride 104 mmol/L (98-107); Estimated CRCL calculation 93 ml/min; Estimated Glomerular Filt Rate > 60; Glucose 110 mg/dL (65-110); Potassium 4.3 mmol/L (3.4-5.0); Sodium 136 mmol/L (137-145)
--- NOTE | 2024-06-29 10:54 | PC.NURSE ---
pt left the department at this time with delivery technician for her scan
--- NOTE | 2024-06-29 11:26 | PC.NURSE ---
pt is now back from MRI
[2024-06-29 11:28] VITALS: BP 118/86; PULSE 87; RESP 18; O2SAT 98
[2024-06-29 11:32] VITALS: BP 113/69; PULSE 61; RESP 20; O2SAT 98
[2024-06-29] MEDS: MORPHINE SULFATE (*CRX) 2 MG/ML INJ IV PUSH (13:28)
[2024-06-29 13:37] VITALS: BP 125/79; PULSE 73; RESP 18; O2SAT 98
== END 2024-06-29 13:44 | disposition home or self-care (01) ==
PROVIDERS: Emergency Provider Physician Assistant
DX: M54.16 Radiculopathy, lumbar region (principal); M43.16 Spondylolisthesis, lumbar region; F41.9 Anxiety disorder, unspecified; F17.210 Nicotine dependence, cigarettes, uncomplicated; Z79.899 Other long term (current) drug therapy; M47.816 Spondylosis without myelopathy or radiculopathy, lumbar region
CPT/HCPCS: 36415; 72110; 72148; 80053; 85025; 96374; 96375; 96376; 99284; J1885; J2270

== ENCOUNTER 2024-07-09 16:34 | Outpatient (CLI) | payer OTHER, SELFPAY ==
--- NOTE | ~2024-07-09 | MR_ITS ---
EXAMINATION: MR brain/brain stem wo/w con DATE: 07/09/2024 18:16 INDICATION: Multiple sclerosis TECHNIQUE: Magnetic resonance imaging (MRI) of the brain and brainstem was performed without and with 17 mL Multihance intravenous contrast. Sequences included sagittal and axial T1-weighted SE, axial d iffusion-weighted FS SE, axial 3D SWAN, axial and sagittal T2-weighted FLAIR, and axial T2-weighted F SE. Postcontrast axial, sagittal and coronal T1-weighted SE was obtained. Apparent diffusion coeffici ent (ADC) maps were created. COMPARISON: None. FINDINGS: There are no areas of restricted diffusion to suggest acute infarction. No intracranial hemorrhage or abnormal intracranial mass lesion. There are no T2 hyperintense brain lesions to suggest multiple sc lerosis. There are no intraparenchymal signal abnormalities seen on the other pulse sequences. The ve ntricles are symmetric and normal in size. There are no abnormal extra-axial fluid collections. Flow voids are seen in the cerebral arteries on the T2-weighted sequences consistent with their expected p atency. Mild mucosal thickening in the bilateral ethmoid and maxillary sinuses. Visualized orbits and soft tissues are unremarkable. There are no areas of abnormal enhancement on the post contrast image s. IMPRESSION: 1. Normal brain. Reviewed, dictated and finalized at location B. IMPRESSION: 1. Normal brain.
--- OUTSIDE RECORDS SUMMARY | 2024-07-09 18:26 | XMS_ITS | Clinical Summary ---
Author Organization [facility] Address [address] [place] [address] Care Team Providers Care Vocational Counselor Name Role Phone Unavailable Primary Care Provider Unavailabl e Source Comments [facility],non-owned Affiliates and Associated Physician Practices is amultiple site organization consisting of ambulatory clinics and hospital sitesin [place], [place], [place] and [place]. This disclosure is being madepursuant to the Care Everywhere program and may not contain all information available regarding this patient. Last updated 17.[facility] [employer] Allergies Active Allergy Reactions Criticality Noted Date [...] Reasons: Heartburn Active ergocalciferol (Drisdol) 1.25 MG (30067 UT) capsule Take 1 (one) capsule by [...] Industry Job Start Date Job End Date [employer] Not on file Not on file Not [...] 29 U/L [facility] Comment: Test Performed at: [facility] [id number] [place] [address] KIRAN BHAKTA MD Blood BLOOD SPECIMEN / Unknown 06/27/2023 9:36 AM CDT 06/27/2023 9:36 AM CDT us Alla A Nathaniel APNP-DIE REPAIRER TRIMMER DIES LAB - CHEMISTRY ORDERABLES Final Result [address] [id number] from Last 3 Months or Most Recently Relevant to Health Maintenance Insurance [facility]
== END 2024-07-09 16:35 | disposition home or self-care (01) ==
PROVIDERS: PCP Neurological Surgery; Visit Provider Neurological Surgery
DX: G35 Multiple sclerosis (principal)
CPT/HCPCS: 70553; A9579

== ENCOUNTER 2024-07-20 15:37 | Outpatient (CLI) | payer OTHER, SELFPAY ==
--- NOTE | ~2024-07-20 | MR_ITS ---
MRI of the thoracic spine Clinical History: Multiple sclerosis Technique: Axial T2-weighted and gradient images, and sagittal T1-weighted, T2-weighted, and STIR winsome ges were acquired. Following intravenous administration of 17 cc ProHance gadolinium, T1-weighted fat -sat imaging was performed in the axial and sagittal planes. Findings: There is no fracture or subluxation of the thoracic spine. Vertebral bodies maintain normal height and alignment. Intervertebral disc spaces are relatively well preserved throughout the thorac ic spine. No bone marrow signal reality seen. No disc bulge or herniation evident at any thoracic level. No spinal canal stenosis or cord compressi on thoracic spine. There is right neural foraminal narrowing at T11-T12. Remaining neural foramina ar e preserved. There is and amorphous T2 hyperintense lesion in the thoracic cord at the T10-T11 level, without asso ciated postcontrast enhancement. No other abnormal signal seen in the spinal cord. Paravertebral soft tissues are unremarkable. Impression: T2 hyperintense spinal cord lesion at the T10-T11 level without enhancement. Diagnostic consideration s could include demyelinating plaque, metabolic disease, now degenerative disease, are other infectio us/inflammatory condition. Lack of contrast enhancement somewhat mitigates against acute inflammation or neoplasm, but clinical correlation is required.. Right neural foraminal narrowing at T11-T12. Reviewed, dictated and finalized at location . Impression: T2 hyperintense spinal cord lesion at the T10-T11 level without enhancement. Di agnostic considerations could include demyelinating plaque, metabolic disease, now degenerative disease, are other infectious/inflammatory condition. Lack of contrast enhancement somewhat mitigates against acute inflammation or neoplasm, but clinical correlation is required.. Right neural foraminal narrowing at T11-T12.
--- OUTSIDE RECORDS SUMMARY | 2024-07-20 15:41 | XMS_ITS | Clinical Summary ---
Author Organization [facility] Address [address] [place] [address] Care Team Providers Care Candle Wrapping Machine Operator Name Role Phone Unavailable Primary Care Provider Unavailabl e Source Comments [facility],non-owned Affiliates and Associated Physician Practices is amultiple site organization consisting of ambulatory clinics and hospital sitesin [place], [place], [place] and [place]. This disclosure is being madepursuant to the Care Everywhere program and may not contain all information available regarding this patient. Last updated 17.[facility] [employer] Allergies Active Allergy Reactions Criticality Noted Date [...] Reasons: Heartburn Active ergocalciferol (Drisdol) 1.25 MG (21628 UT) capsule Take 1 (one) capsule by [...] Date Smoking Tobacco: Every Day Cigarettes 1 25.4 Started: 1999 Smokeless Tobacco: Never Tobacco Cessation:Ready [...] Industry Job Start Date Job End Date [email or web address] Not on file Not on file Not [...] 29 U/L [facility] Comment: Test Performed at: [facility] [id number] [place] [address] KIRAN BHAKTA MD Blood BLOOD SPECIMEN / Unknown 06/27/2023 9:36 AM CDT 06/27/2023 9:36 AM CDT us Alla A Nathaniel APNP-CREOSOTING ENGINEER LAB - CHEMISTRY ORDERABLES Final Result [address] [id number] from Last 3 Months or Most Recently Relevant to Health Maintenance Insurance [place] [address]
== END 2024-07-20 15:38 | disposition home or self-care (01) ==
PROVIDERS: PCP Neurological Surgery; Visit Provider Neurological Surgery
DX: G35 Multiple sclerosis (principal); M48.04 Spinal stenosis, thoracic region
CPT/HCPCS: 72157; A9579